=== PATIENT | female | born 1980 | race Caucasian/White ===

== ENCOUNTER → 2017-08-18 | Outpatient (CLI) | payer OTHER ==
[2017-08-18 19:12] LABS: T4, Free (Free Thyroxine) 1.26 ng/dL (0.78-2.19)
== END ==
LOC: MMGSC 10:22
PROVIDERS: ATTEND Family Medicine
DX: E03.9 Hypothyroidism, unspecified (principal); E55.9 Vitamin D deficiency, unspecified
CPT/HCPCS: 36415; 82306; 84439; 84443

== ENCOUNTER → 2020-06-20 | Outpatient (CLI) | payer BC ==
[2020-06-20 17:24] LABS: Prolactin 7.8 ng/mL (2.8-29.2); T4, Free (Free Thyroxine) 1.1 ng/dL (0.80-1.80)
[2020-06-20 18:08] LABS: Thyroid Peroxidase Antibodies 3485.6 U/mL (0.0-60.0)
[2020-06-21 01:06] LABS: ACTH 7.66 pg/mL (0.00-45.99)
== END | disposition home or self-care (01) ==
LOC: LABWHC1 10:17
PROVIDERS: ATTEND Internal Medicine Endocrinology, Diabetes & Metabolism
DX: E03.8 Other specified hypothyroidism (principal); E55.9 Vitamin D deficiency, unspecified; R53.83 Other fatigue
CPT/HCPCS: 36415; 82024; 82306; 82533; 84146; 84439; 84443; 84481; 84482; 86376; 86800

== ENCOUNTER 2020-07-21 19:41 | Emergency (ER) | payer BC ==
[2020-07-21 19:47] VITALS: BP 135/84; PULSE 64; TEMP 98.3
--- NOTE | 2020-07-21 20:19 | XR ---
EXAMINATION TYPE: XR chest 2V DATE OF EXAM: 07/21/2020 COMPARISON: NONE HISTORY: Chest pain TECHNIQUE: 2 views FINDINGS: Heart and mediastinum are normal. Lungs are clear. Diaphragm is normal. Bony thorax appears normal. IMPRESSION: Normal chest. Normal heart.
--- NOTE | 2020-07-21 20:54 | ED ---
Fever HPI - General Chief Complaint: Fever Stated Complaint: Chest Pain,Cough Time Seen by Provider: 07/21/20 19:48 Source: patient Mode of arrival: ambulatory Limitations: no limitations - History of Present Illness Initial Comments: 40yo female presenting today for cc of chest discomfort, cough, mild dyspnea and body aches/fevers. Patient states that for the past 5 days she has had body aches, some chest discomfort/tightness as though she cannot full expand her lungs. Pt denies jaw pain, arm pain, stabbing pain, leg swelling, hemoptysis. Patient denies nausea, vomiting, diarrhea. Pt had positive sick exposure to a child with URI symptoms. Pt states besides hashimotos she is very healthy, she is a runner, without any other comorbidities. Non-smoker. Patient appears well nontoxic no acute distress on arrival. - Related Data Home Medications Medication Instructions Recorded Confirmed Levothyroxine Sodium [Tirosint] 125 mcg PO DAILY 07/21/20 07/21/20 Liothyronine Sodium [Cytomel] 5 mcg PO DAILY 07/21/20 07/21/20 Allergies Allergy/AdvReac Type Severity Reaction Status Date / Time Sulfa (Sulfonamide Allergy Swelling Verified 07/21/20 20:42 Antibiotics) Review of Systems ROS Statement: Those systems with pertinent positive or pertinent negative responses have been documented in the HPI. ROS Other: All systems not noted in ROS Statement are negative. Past Medical History Past Medical History: Thyroid Disorder Additional Past Medical History / Comment(s): hashimotos History of Any Multi-Drug Resistant Organisms: MRSA Date of last positivie culture/infection: 2008 MDRO Source:: back Past Surgical History: Back Surgery, Bladder Surgery, Hernia Repair Additional Past Surgical History / Comment(s): lower back, Past Psychological History: No Psychological Hx Reported Smoking Status: Never smoker Past Alcohol Use History: None Reported Past Drug Use History: None Reported General Exam - General Exam Comments Initial Comments: General: The patient is awake and alert, in no distress, and does not appear acutely ill. Eye: Pupils are equal, round and reactive to light, extra-ocular movements are intact. No nystagmus. There is normal conjunctiva bilaterally. No signs of icterus. Ears, nose, mouth and throat: There are moist mucous membranes and no oral lesions. Neck: The neck is supple, there is no tenderness or JVD. Cardiovascular: There is a regular rate and rhythm. No murmur, rub or gallop is appreciated. Respiratory: Lungs are clear to auscultation, respirations are non-labored, breath sounds are equal. No wheezes, stridor, rales, or rhonchi. NO retractions no abdominal breathing. Gastrointestinal: Soft, non-distended, non-tender abdomen without masses or organomegaly noted. There is no rebound or guarding present. Musculoskeletal: Normal ROM, no tenderness. Strength 5/5. Sensation intact. radial pulses equal bilaterally 2+. Neurological: A&O x 3. CN II-XII intact grossly, There are no obvious motor or sensory deficits. Coordination appears grossly intact. Speech is normal. Skin: Skin is warm and dry and no rashes or lesions are noted. Psychiatric: Cooperative, appropriate mood & affect, normal judgment. Limitations: no limitations Course Vital Signs 07/21/20 07/21/20 07/21/20 19:43 19:49 21:00 Temperature 98.3 F Pulse Rate 64 Respiratory 22 20 18 Rate Blood Pressure 135/84 O2 Sat by Pulse 100 100 Oximetry 07/21/20 21:01 Temperature 98.3 F Pulse Rate 64 Respiratory 18 Rate Blood Pressure 135/84 O2 Sat by Pulse 100 Oximetry Medical Decision Making - Medical Decision Making 40yo female presenting for cc of fevers, cough, bodyaches, chest discomfort. chest discomfort does not appear cardiac in nature. appears most consistent with viral syndrome. Covid 19 positive. no extremity findings. no hypoxia nor tachycardia. pt appears nontoxic. ekg no acute changes. CXR clear. lungs clear. patient will be [facility] symptomatic instruction and return parameters. pt agreeable, case discussed with Dr. Gould who is agreeable to care plan and discharge. - Lab Data Lab Results 07/21/20 Range/Units 19:49 Coronavirus (PCR) Detected A (Not Detectd) Disposition Clinical Impression: COVID-19, Chest discomfort, Cough, Congestion of nasal sinus Disposition: HOME SELF-CARE Condition: Good Instructions (If sedation given, give patient instructions): Coronavirus Disease 2019 (COVID-19), Fever in Adults (ED) Additional Instructions: Please use medication as discussed. Please follow-up with family doctor in the next 2 days, recommend home monitoring of oxygen with pulse oximeter as discussed. for oxygen levels < 92% or increasing shortness of breath I recommend returning to the ER. Please return to emergency room if the symptoms increase or worsen or for any other concerns. Is patient prescribed a controlled substance at d/c from ED?: No Referrals: Melinda Waller MD [Primary Care Provider] - 1-2 days Time of Disposition: 20:54
[2020-07-21 21:01] VITALS: RESP 18
== END 2020-07-21 21:07 | disposition home or self-care (01) ==
LOC: EC 19:41
DX: U07.1 COVID-19 (principal); R07.89 Other chest pain; R09.81 Nasal congestion; R05 Cough
CPT/HCPCS: 71046; 87635; 93005; 99285

== ENCOUNTER → 2021-09-25 | Outpatient (CLI) | payer BC ==
[2021-09-25 23:44] LABS: T4, Free (Free Thyroxine) 1.63 ng/dL (0.800-1.800)
== END | disposition home or self-care (01) ==
LOC: LABWHC1 17:14
PROVIDERS: ATTEND Internal Medicine Endocrinology, Diabetes & Metabolism
DX: E03.8 Other specified hypothyroidism (principal)
CPT/HCPCS: 36415; 84432; 84439; 84443; 84445; 84480; 86376; 86800

== ENCOUNTER → 2022-02-20 | Outpatient (CLI) | payer BC ==
[2022-02-20 22:04] LABS: Immunoglobulin E 53.5 IU/mL (0.00-114.00)
[2022-02-21 00:26] LABS: Alternaria alternata IgE <0.10 kU/L; Aspergillus fumagatus IgE <0.10 kU/L; Birch IgE <0.10 kU/L; Cat Epith & Dander IgE <0.10 kU/L; Cladosporian herbarum IgE <0.10 kU/L; Cockroach IgE <0.10 kU/L; Dermato. farinae IgE <0.10 kU/L; Dog Dander IgE <0.10 kU/L; Elm IgE <0.10 kU/L; Maple (Box Elder) IgE <0.10 kU/L; Oak IgE <0.10 kU/L; Ragweed,Common IgE <0.10 kU/L; Red Top (Bentgrass) IgE <0.10 kU/L
== END | disposition home or self-care (01) ==
LOC: LABWHC1 12:28
PROVIDERS: ATTEND Internal Medicine Critical Care Medicine
DX: N39.0 Urinary tract infection, site not specified (principal)
CPT/HCPCS: 36415; 82784; 82785; 86003